=== PATIENT | male | born 1945 | race Caucasian/White ===

== ENCOUNTER 2016-12-04 09:15 | Emergency (ER) | payer OTHER, MEDICARE ==
[2016-12-04] MEDS ORDERED: Lidocaine 1% 30 ML SDV INJECT ONE (09:51)
[2016-12-04 10:21] VITALS: BP 166/67
--- NOTE | 2016-12-04 10:22 | EDM.PDOC ---
ED HPI GENERAL MEDICAL PROBLEM - General Chief Complaint: Laceration Stated Complaint: CUT FINGER Time Seen by Provider: 12/04/16 09:31 Source of Information: Reports: Patient History Limitations: Reports: No Limitations - History of Present Illness INITIAL COMMENTS - FREE TEXT/NARRATIVE: Patient was working with a chisel last night and it slipped, cutting his left pinky finger. He applied pressure and wrapped it in duck tape last night. He is here this am as it is still bleeding. He is on coumadin. He has no other complaints today. Onset Date: 12/03/16 Associated Symptoms: Reports: No Other Symptoms - Related Data Allergies Allergy/AdvReac Type Severity Reaction Status Date / Time No Known Allergies Allergy Verified 12/04/16 10:14 Home Meds: Home Meds . [Unable to Verify Home Med List] 12/04/16 [History] ED ROS GENERAL - Review of Systems Review Of Systems: ROS reveals no pertinent complaints other than HPI. ED EXAM, GENERAL - Physical Exam Exam: See Below Exam Limited By: No Limitations General Appearance: Alert, WD/WN, No Apparent Distress Head: Atraumatic, Normocephalic Extremities: Normal Range of Motion, No Pedal Edema, Normal Capillary Refill. No: Joint Swelling Neurological: Alert, Oriented, CN II-XII Intact, Normal Cognition, Normal Gait, Normal Reflexes, No Motor/Sensory Deficits Psychiatric: Normal Affect, Normal Mood Skin Exam: Wound/Incision (2 cm wound to the volar dip area) ED GENERAL MEDICAL PROCEDURES - Laceration/Wound Repair Left Side Distal Ventral Finger Lac/wound length in cm: 2 (medial ventral dip area of 5th digit) Appearance: Subcutaneous, Linear, Clean Distal NVT: Neuro & Vascular Intact, No Tendon Injury Anesthetic Type: Local Local Anesthesia - Lidocaine (Xylocaine): 1% Plain Local Anesthetic Volume: Other (8) Skin Prep: Chlorhexidine (Hibiciens) Exploration/Debridement/Repair: Wound Explored, in a Bloodless Field, Explored to Base, No Foreign Material Found Closed with: Sutures Suture Size: 3-0 # of Sutures: 6 Suture Type: Nylon, Interrupted Sterile Dressing Applied: Nurse Tetanus Status Addressed: Yes (last tetanus 2013) Complications: No Departure - Departure Time of Disposition: 10:39 Disposition: Home, Self-Care 01 Clinical Impression: Laceration of left little finger - Discharge Information Instructions: Laceration Care, Adult, [id number], Wound Infection, Easy-to- Read Additional Instructions: Remove sutures in 14 days. You can do this here or at any primary care facility. Started on Augmentin 875/125 BID x 10 days Keep your hand clean and dry. You may shower, you do not need to cover it. Do not submerge your hand in water including dishwater, bath tub, hot tub, swimming pools, lakes, smith, streams, etc as this can introduce bacteria into the wound. Be aware of signs of infection including fever greater than 101.5 F, chills, red streak going up your arm, increased swelling, redness, heat, drainage that looks like pus and has a foul smell. Please contact us if you have any questions or concerns. - Problem List & Annotations (1) Laceration of left little finger SNOMED Code(s): 503641588, 718343499 Code(s): S61.217A - LAC W/O FB OF L LITTLE FINGER W/O DAMAGE TO NAIL, INIT Status: Acute Priority: Low Qualifiers: Encounter type: initial encounter Damage to nail status: without damage Foreign body presence: without foreign body Qualified Code(s): S61.217A - Laceration without foreign body of left little finger without damage to nail, initial encounter - Problem List Review Problem List Initiated/Reviewed/Updated: Yes - Assessment/Plan Assessment:: left 5th digit laceration Plan: Remove sutures in 14 days. You can do this here or at any primary care facility Keep your hand clean and dry. You may shower, you do not need to cover it. Do not submerge your hand in water including dishwater, bath tub, hot tub, swimming pools, lakes, smith, streams, etc as this can introduce bacteria into the wound. Be aware of signs of infection including fever greater than 101.5 F, chills, red streak going up your arm, increased swelling, redness, heat, drainage that looks like pus and has a foul smell. Please contact us if you have any questions or concerns.
== END 2016-12-04 10:43 | disposition home or self-care (01) ==
LOC: VM.ED 09:15
DX: S61.217A Laceration without foreign body of left little finger without damage to nail, initial encounter (principal); W27.0XXA Contact with workbench tool, initial encounter; Y92.69 Other specified industrial and construction area as the place of occurrence of the external cause; Y99.0 Civilian activity done for income or pay
CPT/HCPCS: 12001; 73140-F4; 99282-GF-25; 99283

== ENCOUNTER 2021-01-16 10:50 | Emergency (ER) | payer OTHER, MEDICARE ==
[2021-01-16 11:08] VITALS: PULSE 90
[2021-01-16] MEDS ORDERED: cefTRIAXone 1 GM in Sodium Chloride 0.9% 100 ML IV ONE (11:35)
[2021-01-16] MEDS ORDERED: Sodium Chloride 0.9% 1,000 ML IV ONE (11:35)
--- NOTE | 2021-01-16 11:44 | EDM.PDOC ---
ED HPI GENERAL MEDICAL PROBLEM - General Chief Complaint: Respiratory Problem Stated Complaint: shortness of breath Time Seen by Provider: 01/16/21 10:50 Source of Information: Reports: Patient History Limitations: Reports: No Limitations - History of Present Illness INITIAL COMMENTS - FREE TEXT/NARRATIVE: Nitesh is a 75 year old male who presents to ER after being triaged at [facility] for complaints of shortness of breath. Did have chest pain last evening and in to this am but that has now resolved. "feel more winded than usual". Had a recent tooth extraction, was off his coumadin for 2 days for the procedure. Has not noted any increase swelling in his legs. Did feel nauseated, had dry heaves last night. No diarrhea. Admits that abdomen "puffed right up since yesterday". Does have a cough but admits no worse than usual. He denies sinus congestion, sore throat or eat pain. No urinary concerns. PMH consists of atrial fib, CAD , remote history of [place], Hyperlipidemia, renal insufficiency, GERD. Onset: Gradual Duration: Hour(s):, Getting Worse Location: Reports: Chest, Abdomen Quality: Reports: Ache Severity: Mild Improves with: Reports: Rest Associated Symptoms: Reports: Chest Pain (did have but is now resolved), Cough, Fever/Chills (had sweating last evening), Shortness of Breath. Denies: Confusion, cough w sputum, Loss of Appetite, Nausea/Vomiting Lower Back Pain Score (Numeric/FACES): 1 - Related Data Allergies Allergy/AdvReac Type Severity Reaction Status Date / Time No Known Allergies Allergy Verified 01/16/21 11:28 Home Meds: Home Meds Alfuzosin HCl [Alfuzosin HCl ER] 10 mg PO DAILY 01/16/21 [History] Brimonidine/Dorzolamide/Pf [Brimonidine 0.15%-Dorzolam 2%] 10 ml OP BID 01/16/21 [History] Bumetanide 2 mg PO BID 01/16/21 [History] Cholecalciferol (Vitamin D3) [Vitamin D] 5,000 unit PO DAILY 01/16/21 [History] Ferrous Sulfate 324 mg PO DAILY 01/16/21 [History] Losartan Potassium [Cozaar] 75 mg PO DAILY 01/16/21 [History] Melatonin 5 mg PO BEDTIME 01/16/21 [History] Metoprolol Tartrate [Lopressor] 150 mg PO BID 01/16/21 [History] NIFEdipine [Procardia Xl] 30 mg PO DAILY 01/16/21 [History] Naproxen Sodium [Aleve] 220 mg PO BID PRN 01/16/21 [History] Omeprazole Magnesium [Prilosec Otc] 20 mg PO DAILY 01/16/21 [History] Potassium Chloride [Klor-Con M10] 20 meq PO BID 01/16/21 [History] Theophylline [Theophylline Anhydrous] 150 mg PO BID 01/16/21 [History] Triamcinolone Acetonide [Kenalog 0.1% Crm] 15 gm TOP DAILY 01/16/21 [History] Warfarin [Coumadin] 5 mg PO DAILY 01/16/21 [History] atorvaSTATin [Lipitor] 40 mg PO BEDTIME 01/16/21 [History] timoloL maleate [Timoptic 0.5% Opth Soln] 1 drop EYEBOTH BID 01/16/21 [History] Past Medical History Cardiovascular History: Reports: Afib, CAD, High Cholesterol, Hypertension, [place] Gastrointestinal History: Reports: GERD Genitourinary History: Reports: Chronic Renal Insuffiency - Infectious Disease History Infectious Disease History: Reports: Other (See Below) Other Infectious Disease History: Relates hx of infections to L calf and foot. - Past Surgical History Cardiovascular Surgical History: Reports: Coronary Artery Bypass GI Surgical History: Reports: Appendectomy Social & Family History - Tobacco Use Tobacco Use Status *Q: Unknown Ever Used Tobacco ED ROS GENERAL - Review of Systems Review Of Systems: See Below Constitutional: Reports: Malaise, Weakness, Fatigue, Decreased Appetite. Denies: Chills HEENT: Denies: Ear Pain, Rhinitis, Sinus Problem, Throat Pain, Vertigo Respiratory: Reports: Shortness of Breath, Cough. Denies: Sputum Cardiovascular: Reports: Chest Pain. Denies: Edema, Lightheadedness Endocrine: Reports: Fatigue GI/Abdominal: Reports: Nausea. Denies: Abdominal Pain, Constipation, Diarrhea, Vomiting : Reports: No Symptoms Musculoskeletal: Reports: Back Pain Skin: Reports: No Symptoms Neurological: Reports: Weakness ED EXAM, GENERAL - Physical Exam Exam: See Below Exam Limited By: No Limitations General Appearance: Alert, WD/WN, No Apparent Distress Ears: Normal External Exam, Normal TMs Nose: Normal Inspection, Normal Mucosa, No Blood Throat/Mouth: Normal Inspection, Normal Oropharynx Head: Normocephalic Neck: Normal Inspection, Supple, Non-Tender Respiratory/Chest: No Respiratory Distress, Decreased Breath Sounds Cardiovascular: Irregularly Irregular GI/Abdominal: Normal Bowel Sounds, Soft, Non-Tender Extremities: Other (stasis dermatitis) Neurological: Alert, Oriented Skin Exam: Warm, Dry #1 Interpretation EKG Date: 01/16/21 Rhythm: A-Fib P-Wave: Absent QRS: Normal ST-T: Depressed Comparison: NA - No Prior EKG Course - Vital Signs Last Recorded V/S: Last Vital Signs Temp 98.3 F 01/16/21 11:58 Pulse 90 01/16/21 11:58 Resp 18 01/16/21 11:58 BP 161/75 H 01/16/21 11:58 Pulse Ox 94 L 01/16/21 11:58 - Orders/Labs/Meds Orders: Active Orders 24 hr Category Date Time Status Abdomen 2V AP Flat Upright [CR] Stat Exams 01/16/21 11:01 Ordered Ang Chest [CT] Stat Exams 01/16/21 11:58 Stop Req CULTURE BLOOD [BC] Stat Lab 01/16/21 11:34 Ordered CULTURE BLOOD [BC] Stat Lab 01/16/21 11:34 Ordered UA RFX LACEY AND CULT IF INDIC [URIN] Stat Lab 01/16/21 11:01 Ordered Sodium Chloride 0.9% [Normal Saline] 1,000 ml Med 01/16/21 11:35 Ordered IV BOLUS Blood Culture x2 Reflex Set [OM.PC] Stat Oth 01/16/21 11:34 Ordered Medication Orders Sodium Chloride (Normal Saline) 1,000 mls @ 250 mls/hr IV BOLUS ONE; Protocol Stop: 01/16/21 15:34 Last Admin: 01/16/21 11:56 Dose: 250 mls/hr Documented by: REENA Labs: Laboratory Tests 01/16/21 01/16/21 01/16/21 Range/Units 11:25 11:25 11:25 WBC 25.0 H* (4.0-10.0) x10^3/uL RBC 4.84 (4.5-6.0) x10^6/uL Hgb 15.5 (14.0-18.0) g/dL Hct 43.5 (40.0-52.0) % MCV 89.9 (78.0-93.0) fL MCH 32.0 (26.0-32.0) pg MCHC 35.6 (32.0-36.0) g/dL RDW Coeff of Frenanda 13.6 (10.0-15.0) % Plt Count 168 (130-400) x10^3/uL Add Manual Diff Yes Neutrophils % (Manual) 86 H (50-80) % Lymphocytes % (Manual) 4 L (25-50) % Monocytes % (Manual) 10 (2-11) % Platelet Estimate Adequate PT (9.9-12.5) SEC INR (2.0-3.5) D-Dimer, Quantitative 0.87 H (<=0.58) mg/LFEU Sodium 139 (136-145) mmol/L Potassium 4.1 (3.5-5.1) mmol/L Chloride 101 (98-107) mmol/L Carbon Dioxide 30 (21-32) mmol/L Anion Gap 12.1 (5-15) mmol/L BUN 26 H (7-18) mg/dL Creatinine 1.9 H (0.70-1.30) mg/dL Est Cr Clr Drug Dosing TNP Estimated GFR (MDRD) 35 Glucose 151 H (70-99) mg/dL Lactic Acid (0.4-2.0) mmol/L Calcium 8.4 L (8.5-10.1) mg/dL Corrected Calcium 8.8 (8.5-10.1) mg/dL Total Bilirubin 1.6 H (0.2-1.0) mg/dL AST 24 (15-37) U/L ALT 28 (16-63) U/L Alkaline Phosphatase 150 H (46-116) U/L Lactate Dehydrogenase 280 H (85-227) U/L Creatine Kinase 677 H* (39-308) U/L Troponin I High Sens 8 (<=76) ng/L C-Reactive Protein 3.4 H (<=0.9) mg/dL NT-Pro-B Natriuret Pep 3598 H (<=450) pg/mL Total Protein 7.8 (6.4-8.2) g/dL Albumin 3.5 (3.4-5.0) g/dL Globulin 4.3 Albumin/Globulin Ratio 0.81 SARS CoV-2 RNA Rapid INA (NEGATIVE) 01/16/21 01/16/21 01/16/21 Range/Units 11:25 11:25 12:11 WBC (4.0-10.0) x10^3/uL RBC (4.5-6.0) x10^6/uL Hgb (14.0-18.0) g/dL Hct (40.0-52.0) % MCV (78.0-93.0) fL MCH (26.0-32.0) pg MCHC (32.0-36.0) g/dL RDW Coeff of Fernanda (10.0-15.0) % Plt Count (130-400) x10^3/uL Add Manual Diff Neutrophils % (Manual) (50-80) % Lymphocytes % (Manual) (25-50) % Monocytes % (Manual) (2-11) % Platelet Estimate PT 18.6 H (9.9-12.5) SEC INR 1.7 L (2.0-3.5) D-Dimer, Quantitative (<=0.58) mg/LFEU Sodium (136-145) mmol/L Potassium (3.5-5.1) mmol/L Chloride (98-107) mmol/L Carbon Dioxide (21-32) mmol/L Anion Gap (5-15) mmol/L BUN (7-18) mg/dL Creatinine (0.70-1.30) mg/dL Est Cr Clr Drug Dosing Estimated GFR (MDRD) Glucose (70-99) mg/dL Lactic Acid 1.8 (0.4-2.0) mmol/L Calcium (8.5-10.1) mg/dL Corrected Calcium (8.5-10.1) mg/dL Total Bilirubin (0.2-1.0) mg/dL AST (15-37) U/L ALT (16-63) U/L Alkaline Phosphatase (46-116) U/L Lactate Dehydrogenase (85-227) U/L Creatine Kinase (39-308) U/L Troponin I High Sens (<=76) ng/L C-Reactive Protein (<=0.9) mg/dL NT-Pro-B Natriuret Pep (<=450) pg/mL Total Protein (6.4-8.2) g/dL Albumin (3.4-5.0) g/dL Globulin Albumin/Globulin Ratio SARS CoV-2 RNA Rapid INA Negative (NEGATIVE) Meds: Medications Generic Name Dose Route Start Last Admin Trade Name Sneha PRN Reason Stop Dose Admin Sodium Chloride 1,000 mls @ 250 mls/hr 01/16/21 11:35 01/16/21 11:56 Normal Saline IV 01/16/21 15:34 250 mls/hr BOLUS ONE Administration Protocol Discontinued Medications Generic Name Dose Route Start Last Admin Trade Name Sneha PRN Reason Stop Dose Admin Ceftriaxone Sodium 1 gm 01/16/21 11:48 01/16/21 12:04 Ceftriaxone 1 Gm Vial IVPUSH 01/16/21 11:49 1 gm STAT ONE Administration Ceftriaxone Sodium 1 gm/ 100 mls @ 200 mls/hr 01/16/21 11:35 01/16/21 11:57 Sodium Chloride IV 01/16/21 12:04 Not Given STAT ONE - Re-Assessments/Exams Free Text/Narrative Re-Assessment/Exam: 01/16/21 12:20-Contacted the [facility] in [place], patient primary provider there is Dr. Pérez. Spoke with Dr. Liu, hospitalist about patient status. Agreed to accept the patient in transfer as has elevated WBC of 25, elevated creatinine and liver enzymes, evidence of CHF. Possible PE with elevated d- dimer and subtherapeutic INR. Due to multiple concerns, [facility] agrees to accept patient for further work up. Patient aware and agrees with plan. 01/16/21 12:36 IV fluids reduced, patient has been given IV Rocephin. Lactic acid 1.8. Covid swab obtained. Departure - Departure Time of Disposition: 12:36 Disposition: DC/Tfer to Acute Hospital 02 Condition: Fair Clinical Impression: Leukocytosis, CHF (congestive heart failure), HERO (acute kidney injury), Elevated liver enzymes - Discharge Information *PRESCRIPTION DRUG MONITORING PROGRAM REVIEWED*: No *COPY OF PRESCRIPTION DRUG MONITORING REPORT IN PATIENT HENNA: No Referrals: PCP,None [Primary Care Provider] - Forms: ED Department Discharge Additional Instructions: Transfer ALS to the [facility] to Dr. Liu Sepsis Event Note (ED) - Focused Exam Vital Signs: Vital Signs Temp Pulse Resp BP Pulse Ox 01/16/21 11:58 98.3 F 90 18 161/75 H 94 L 01/16/21 10:50 98.2 F 90 20 159/79 H 96 - My Orders Last 24 Hours: My Active Orders 01/16/21 11:01 Abdomen 2V AP Flat Upright [CR] Stat UA RFX LACEY AND CULT IF INDIC [URIN] Stat 01/16/21 11:34 CULTURE BLOOD [BC] Stat CULTURE BLOOD [BC] Stat Blood Culture x2 Reflex Set [OM.PC] Stat 01/16/21 11:35 Sodium Chloride 0.9% [Normal Saline] 1,000 ml IV BOLUS 01/16/21 11:58 Ang Chest [CT] Stat - Assessment/Plan Last 24 Hours: My Active Orders 01/16/21 11:01 Abdomen 2V AP Flat Upright [CR] Stat UA RFX LACEY AND CULT IF INDIC [URIN] Stat 01/16/21 11:34 CULTURE BLOOD [BC] Stat CULTURE BLOOD [BC] Stat Blood Culture x2 Reflex Set [OM.PC] Stat 01/16/21 11:35 Sodium Chloride 0.9% [Normal Saline] 1,000 ml IV BOLUS 01/16/21 11:58 Ang Chest [CT] Stat
[2021-01-16] MEDS ORDERED: cefTRIAXone 1 GM Vial IVPUSH ONE (11:48)
--- NOTE | 2021-01-16 11:51 | CR ---
[id number] RAD/RAD Chest PA And Lateral EXAM: FRONTAL AND LATERAL CHEST INDICATION: SHORTNESS OF BREATH. COMPARISON: None. DISCUSSION: Cardiomegaly with mild central vascular congestion. Low lung volumes. Mild elevation right hemidiaphragm. Sternotomy. No effusions. IMPRESSION: 1. Cardiomegaly with early central vascular congestion. Jose M Boucher MD 01/16/21 1148 Thank you for allowing us to participate in the care of your patient.
[2021-01-16 12:01] LABS: CHLORIDE,CL 101 mmol/L (98-107); SODIUM,NA 139 mmol/L (136-145)
[2021-01-16 12:02] VITALS: BP 161/75
[2021-01-16 12:04] LABS: ANION GAP 12.1 mmol/L (5-15)
== END 2021-01-16 12:59 | disposition short-term general hospital (02) ==
LOC: VM.ED 10:50
DX: I13.0 Hypertensive heart and chronic kidney disease with heart failure and stage 1 through stage 4 chronic kidney disease, or unspecified chronic kidney disease (principal); N18.9 Chronic kidney disease, unspecified; I50.9 Heart failure, unspecified; N17.9 Acute kidney failure, unspecified; D72.829 Elevated white blood cell count, unspecified; R74.8 Abnormal levels of other serum enzymes; I48.91 Unspecified atrial fibrillation; I25.10 Atherosclerotic heart disease of native coronary artery without angina pectoris; E78.00 Pure hypercholesterolemia, unspecified; K21.9 Gastro-esophageal reflux disease without esophagitis; I25.2 Old myocardial infarction; Z95.1 Presence of aortocoronary bypass graft; Z79.01 Long term (current) use of anticoagulants; Z79.899 Other long term (current) drug therapy; Z20.822 Contact with and (suspected) exposure to COVID-19
CPT/HCPCS: 36415; 71046; 74019; 80053; 81001; 82550; 83605; 83615; 83880; 84484; 85025; 85379; 85610; 86140; 87040; 93010; 96374; 99284; 99285-25; J0696; J7030; U0002

== ENCOUNTER 2021-08-24 05:02 | Emergency (ER) | payer MEDICARE, OTHER ==
[2021-08-24 06:25] LABS: ANION GAP 12.5 mmol/L (5-15)
[2021-08-24] MEDS: Sodium Chloride 0.9% 1,000 ML IV SCH (07:00)
[2021-08-24] MEDS: Pantoprazole 40 MG in Sodium Chloride 0.9% 100 ML IV SCH (07:28)
[2021-08-24 08:01] VITALS: BP 114/51; PULSE 99
== END 2021-08-24 08:07 | disposition short-term general hospital (02) ==
LOC: VM.ED 05:02
DX: K92.2 Gastrointestinal hemorrhage, unspecified (principal); N17.9 Acute kidney failure, unspecified; I48.91 Unspecified atrial fibrillation; I25.10 Atherosclerotic heart disease of native coronary artery without angina pectoris; E78.00 Pure hypercholesterolemia, unspecified; I12.9 Hypertensive chronic kidney disease with stage 1 through stage 4 chronic kidney disease, or unspecified chronic kidney disease; N18.9 Chronic kidney disease, unspecified; I25.2 Old myocardial infarction; Z79.01 Long term (current) use of anticoagulants; Z79.899 Other long term (current) drug therapy; Z95.1 Presence of aortocoronary bypass graft
CPT/HCPCS: 36415; 80053; 85025; 86140; 93005; 93010; 96365; 99284; 99285-25; C9113; J7030

== ENCOUNTER 2021-11-05 13:37 | Emergency (ER) | payer OTHER, MEDICARE ==
[2021-11-05 14:37] LABS: CHLORIDE,CL 103 mmol/L (98-107); SODIUM,NA 142 mmol/L (136-145)
[2021-11-05 14:44] LABS: ANION GAP 13.2 mmol/L (5-15)
[2021-11-05 15:51] VITALS: BP 140/63; PULSE 92
== END 2021-11-05 15:48 | disposition home or self-care (01) ==
LOC: VM.ED 13:37
DX: R53.1 Weakness (principal); I11.0 Hypertensive heart disease with heart failure; I50.9 Heart failure, unspecified; I25.2 Old myocardial infarction; E78.00 Pure hypercholesterolemia, unspecified; I25.10 Atherosclerotic heart disease of native coronary artery without angina pectoris; J44.9 Chronic obstructive pulmonary disease, unspecified; K21.9 Gastro-esophageal reflux disease without esophagitis; Z90.49 Acquired absence of other specified parts of digestive tract; Z79.899 Other long term (current) drug therapy; Z79.01 Long term (current) use of anticoagulants
CPT/HCPCS: 36415; 71046; 80053; 81001; 83735; 83880; 84484; 85025; 86140; 87086; 93010; 99284; 99285-25

== ENCOUNTER 2024-01-11 19:37 | Emergency (ER) | payer OTHER, MEDICARE ==
[2024-01-11] MEDS: Acetaminophen 325 MG Tab PO ONE (20:11)
[2024-01-11] MEDS: Cyclobenzaprine 10 MG Tab PO ONE (20:11)
[2024-01-11 22:45] VITALS: BP 170/84; PULSE 111
== END 2024-01-11 20:40 | disposition home or self-care (01) ==
LOC: VM.ED 19:37
DX: M54.2 Cervicalgia (principal); I11.0 Hypertensive heart disease with heart failure; I50.9 Heart failure, unspecified; I25.10 Atherosclerotic heart disease of native coronary artery without angina pectoris; I25.2 Old myocardial infarction; I48.91 Unspecified atrial fibrillation; E78.00 Pure hypercholesterolemia, unspecified; J44.9 Chronic obstructive pulmonary disease, unspecified; K21.9 Gastro-esophageal reflux disease without esophagitis; Z95.1 Presence of aortocoronary bypass graft; Z90.49 Acquired absence of other specified parts of digestive tract; Z79.01 Long term (current) use of anticoagulants; Z79.899 Other long term (current) drug therapy
CPT/HCPCS: 99283; A9270-GY

== ENCOUNTER 2024-04-01 12:05 | Emergency (ER) | payer OTHER, MEDICARE ==
[2024-04-01 12:25] VITALS: BP 138/84; PULSE 84
[2024-04-01 13:01] LABS: C-REACTIVE PROTEIN 1.57 mg/dL (<=0.50); URIC ACID 7.2 mg/dL (3.5-7.2)
[2024-04-01] MEDS: Take Home: Acetaminophen/Codeine 300 MG/30 MG, 5 Tab Pack PO ONE (13:15)
[2024-04-01] MEDS: Colchicine 0.6 MG Tab PO ONE ×3 (13:16)
== END 2024-04-01 13:22 | disposition home or self-care (01) ==
LOC: SUPCPDRO 12:05 → VM.ED 12:05
DX: M10.9 Gout, unspecified (principal); I48.91 Unspecified atrial fibrillation; I25.10 Atherosclerotic heart disease of native coronary artery without angina pectoris; I11.0 Hypertensive heart disease with heart failure; I50.9 Heart failure, unspecified; E78.00 Pure hypercholesterolemia, unspecified; I25.2 Old myocardial infarction; J44.9 Chronic obstructive pulmonary disease, unspecified; K21.9 Gastro-esophageal reflux disease without esophagitis; Z90.49 Acquired absence of other specified parts of digestive tract; Z79.01 Long term (current) use of anticoagulants; Z79.899 Other long term (current) drug therapy
CPT/HCPCS: 36415; 84550; 86140; 99283; 99284; A9270-GY

== ENCOUNTER 2025-01-24 15:37 | Emergency (ER) | payer OTHER, MEDICARE ==
[2025-01-24 16:12] LABS: BASOPHILS ABSOLUTE AUTO 0.0 x10^3/uL (0.0-0.2); BASOPHILS PERCENT AUTO 0.1 % (0.2-1.2); EOSINOPHILS ABSOLUTE AUTO 0.2 x10^3/uL (0.0-0.5); EOSINOPHILS PERCENT AUTO 2.1 % (0.0-4.0); IMMATURE GRAN ABSOLUTE AUTO 0.02 x10^3/uL (0.00-0.07); IMMATURE GRAN PERCENT AUTO 0.20 % (0.00-0.43); LYMPHOCYTES ABSOLUTE AUTO 2.0 x10^3/uL (1.0-4.8); LYMPHOCYTES PERCENT AUTO 22.0 % (25.0-50.0); MONOCYTES ABSOLUTE AUTO 0.9 x10^3/uL (0.0-0.8); MONOCYTES PERCENT AUTO 10.2 % (2.0-11.0); NEUTROPHILS ABSOLUTE AUTO 5.9 x10^3/uL (1.8-7.7); NEUTROPHILS PERCENT AUTO 65.4 % (50.0-80.0); PLATELET COUNT,PLT 188 x10^3/uL (130-400); RED BLOOD CELL COUNT 3.83 x10^6/uL (4.5-6.0); WHITE BLOOD CELL COUNT,WBC 9.0 x10^3/uL (4.0-10.0)
[2025-01-24 16:35] LABS: A/G RATIO 1.06; ALANINE AMINOTRANSFERASE,ALT 34 U/L (16-63); ASPARTATE AMNIOTRANSFERASE,AST 23 U/L (15-37); BILIRUBIN TOTAL 1.1 mg/dL (0.2-1.0); CARBON DIOXIDE,CO2 25 mmol/L (21-32); CHLORIDE,CL 99 mmol/L (98-107); GLUCOSE RANDOM 138 mg/dL (70-99); POTASSIUM,K 3.0 mmol/L (3.5-5.1); PRO B-TYPE NATRIUR PEPT,BNPPRO 5813 pg/mL (<=450); PROTEIN TOTAL,TP 6.6 g/dL (6.4-8.2); SODIUM,NA 139 mmol/L (136-145)
[2025-01-24 16:36] LABS: BLOOD UREA NITROGEN,BUN 74 mg/dL (7-18); CREATININE 5.8 mg/dL (0.70-1.30); ESTIMATED GFR 9 mL/min (>=60)
[2025-01-24] MEDS: Potassium Bicarbonate/Cit Ac 10 MEQ Effervescent Tab PO ONE (18:22)
[2025-01-24 19:42] VITALS: BP 92/51; PULSE 84
== END 2025-01-24 19:55 ==
LOC: VM.ED 15:37
DX: I95.9 Hypotension, unspecified (principal); E87.6 Hypokalemia; I11.0 Hypertensive heart disease with heart failure; I50.9 Heart failure, unspecified; I25.2 Old myocardial infarction; I25.10 Atherosclerotic heart disease of native coronary artery without angina pectoris; I48.91 Unspecified atrial fibrillation; K21.9 Gastro-esophageal reflux disease without esophagitis; Z79.899 Other long term (current) drug therapy; Z79.01 Long term (current) use of anticoagulants; Z95.1 Presence of aortocoronary bypass graft
CPT/HCPCS: 36415; 71045; 80053; 83735; 83880; 84484; 85025; 93005; 93010; 99284; 99285; A9270